=== PATIENT | male | born 1970 | race Hispanic/Latino ===

== ENCOUNTER 2020-04-28 14:23 | Emergency (ER) ==
[2020-04-28] MEDS ORDERED: Lidocaine 1% PF 5 ML VIAL ONE ×2 (14:36→15:22)
[2020-04-28] MEDS ORDERED: Boostrix 0.5 ML (Tdap) VIAL ONE (14:36)
--- NOTE | 2020-04-28 15:00 | RAD ---
XR Forearm Rt 2 View STANDARD INDICATION: History of forearm laceration COMPARISON:None. FINDINGS: Bones: No acute fracture or subluxation is evident. Joints: No acute abnormality. Soft tissues: There is soft tissue swelling involving the volar aspect of the right mid forearm. Ther e is a 2 mm radiopaque foreign body within the soft tissues of the mid right forearm. IMPRESSION: Soft tissue swelling of the volar aspect of the mid right forearm with associated 2 mm ra diopaque foreign body.
== END 2020-04-28 16:38 | disposition home or self-care (01) ==
LOC: ERS 14:23
DX: S51.811A Laceration without foreign body of right forearm, initial encounter (principal); Z23 Encounter for immunization; W26.8XXA Contact with other sharp object(s), not elsewhere classified, initial encounter; Y99.0 Civilian activity done for income or pay
CPT/HCPCS: 12002; 90471; 90715

== ENCOUNTER 2020-05-12 11:05 | Emergency (ER) | payer OTHER | END 2020-05-12 11:50 | disposition home or self-care (01) | LOC: ERS 11:05 | DX: S51.811D Laceration without foreign body of right forearm, subsequent encounter (principal); W45.8XXD Other foreign body or object entering through skin, subsequent encounter ==